=== PATIENT | female | born 1975 | race African-American/Black ===

== ENCOUNTER 2016-12-12 14:41 | Emergency (ER) | payer OTHER, SELFPAY ==
[2016-12-12 15:23] LABS: BASO % 0.5 % (0.0-1.0); EOS # 0.2 K/mm3 (0.0-0.50); EOS % 1.8 % (0.0-3.0); LARGE UNSTAINED CELL # 0.2 K/mm3 (0.0-0.4); LARGE UNSTAINED CELL % 2.2 % (0.0-4.0); LYMPH # 2.6 K/mm3 (1.5-4.5); LYMPH % 27.9 % (24.0-44.0); MEAN CORPUSCULAR HEMOGLOBIN 27.4 pg (27.0-33.0); MEAN CORPUSCULAR HGB CONC 33.4 g/dl (32.0-36.5); MEAN CORPUSCULAR VOLUME 81.9 fl (80.0-96.0); MONO # 0.4 K/mm3 (0.0-0.8); MONO % 4.1 % (0.0-5.0); NEUTROPHILS # 5.8 K/mm3 (1.8-7.7); NEUTROPHILS % 63.6 % (36.0-66.0); PLATELET COUNT, AUTOMATED 321 k/mm3 (150-450); RED CELL DISTRIBUTION WIDTH 13.4 % (11.5-14.5); WHITE BLOOD COUNT 9.2 K/mm3 (4.0-10.0)
[2016-12-12 16:01] LABS: ANION GAP 6 MEQ/L (8-16); BLOOD UREA NITROGEN 11 MG/DL (7-18); CALCIUM LEVEL 9.4 MG/DL (8.5-10.1); CARBON DIOXIDE LEVEL 27 MEQ/L (21-32); CHLORIDE LEVEL 105 MEQ/L (98-107); CREATININE FOR GFR 0.95 MG/DL (0.55-1.02); GLOMERULAR FILTRATION RATE > 60.0 (>58); GLUCOSE, FASTING 93 MG/DL (70-105); POTASSIUM SERUM 3.6 MEQ/L (3.5-5.1); SODIUM LEVEL 138 MEQ/L (136-145)
[2016-12-12 16:08] LABS: THYROXINE (T4) 9.5 UG/DL (4.5-12.0)
--- NOTE | 2016-12-12 16:14 | REP ---
Chest x-ray: Two views: History: Shortness of breath. Comparison study 10/25/2016. Findings: There is an S-shaped thoracolumbar rotoscoliotic curve again noted unchanged. Lungs well inflated and clear. Pleural angles are sharp. Heart is not enlarged. Pulmonary vasculature is not increased. Impression: No active disease. Thoracolumbar rotoscoliosis again noted. Signed by Madi Soto MD 12/12/2016 04:22 P
[2016-12-12] MEDS ORDERED: ISOVUE-370 76% 100ML VIAL (Q9967) As Ordered ONE (16:22)
--- NOTE | 2016-12-12 17:00 | REP ---
Chest CT pulmonary artery CT angiography: Comparison is 12/12/2011. There are no emboli in the pulmonary trunk or central pulmonary arteries. There are no emboli in the pulmonary artery lobe or segment branches. The lung buenrostro are unremarkable except for dependent atelectasis. There is no mediastinal adenopathy. There is no hilar adenopathy. No axillary adenopathy. The thoracic aorta is unremarkable. Cardiac size is upper normal. The visualized upper abdominal contents are unremarkable except for a hypodensity in the spleen, likely a cyst, unchanged. Impression: There is no evidence of pulmonary embolus. Otherwise, negative CT study of the chest. There is a hypodensity in the spleen, unchanged, likely a cyst. Signed by Jh Bowling MD 12/12/2016 04:52 P
--- NOTE | 2016-12-12 17:30 | ECHO ---
DATE OF PROCEDURE: 12/12/2016 REFERRING PHYSICIAN: KAYE Qureshi INDICATION: Dyspnea. HEIGHT: 157 cm WEIGHT: 64.9 kg MEASUREMENTS: Aortic root: 2.8 cm Left atrium: 3.3 cm Ventricular septum: 1.02 cm Posterior wall: 0.91 cm Left ventricle diastole: 4.0 cm LVOT: 2.1 cm Inferior vena cava: 1.4 cm DOPPLER MEASUREMENTS: Aortic valve velocity: 103 cm/s LVOT velocity: 75.9 cm/s LVOT VTI: 50.3 cm Very mild mitral regurgitation. Mitral E velocity: 75.5 cm/s Mitral A velocity: 60.7 cm/s Mitral deceleration time: 169 ms Very mild tricuspid regurgitation within normal limits. Pulmonary artery systolic pressure: 60 mmHg by pulmonary acceleration time. Estimated right ventricular systolic pressure: 23 mmHg assuming a right atrial pressure of 5 mmHg. MITRAL ANNULAR TISSUE DOPPLER: E prime lateral: 16.3 cm/s E prime septal: 9.3 cm/s DESCRIPTION: Rhythm was sinus. Image quality was good. No pericardial effusion. This is a 2D, M-mode, color flow Doppler, and pulse wave Doppler examination and included mitral annular tissue Doppler. CONCLUSIONS: 1. Normal echocardiogram Doppler. 2. Normal left ventricle (LV) internal dimension, wall thickness, wall motion, wall thickening, systolic and diastolic function. Left ventricular ejection fraction (LVEF) 60% by visual loss. 3. Normal estimated right ventricle systolic pressure and pulmonary artery systolic pressure.
--- NOTE | 2016-12-12 17:53 | EDDOCDS ---
Nurse's Notes [facility] Name: Keyana Gordon Age: 41 yrs Sex: Female : 1975 Arrival Date: 12/12/2016 Time: 14:41 Bed 7 Private MD: Khadra [facility] Diagnosis: Malaise and fatigue Presentation: 12/12 14:47 Presenting complaint: Patient states: has been having some shortness of breathe , worse mk4 on exertion since a cardiac ablation last wed ( 6 days ago) has called and they told wanted to see her in office but her car is broken down, denies any chest pain. Adult Sepsis Screening: The patient does not have new or worsening altered mentation. Patient's respiratory rate is less than 22. Systolic blood pressure is greater than 100. Patient has a qSOFA score of 0- Negative Sepsis Screen. Suicide/Homicide risk assessment- the patient denies having any suicidal and/or homicidal ideations and does not present with any other emotional, behavioral or mental health complaints. Transition of care: patient was not received from another setting of care. 14:47 Acuity: SVETLANA Level 3 mk4 14:47 Method Of Arrival: Walkin/Carried/Asstd mk4 17:52 Status: The patient is a dependent. f Triage Assessment: 14:51 General: Appears in no apparent distress. Pain: Denies pain. HIV screening NA for this mk4 visit Offered previously. Historical: - Allergies: Macrobid; - Home Meds: 1. multivitamin Oral cap daily - PMHx: Celiac disease; second degree av block; - PSHx: Cardiac Ablation; ; - Social history: Smoking status: Patient states was never smoker of tobacco. No barriers to communication noted, The patient speaks fluent Albanian. - Family history: Not pertinent. - : The pt / caregiver states he / she is not on anticoagulants. Home medication list is obtained from the patient. - Exposure Risk Screening:: None identified. Screenin:12 Screening information is obtained from the patient. Fall risk: No risks identified. ttb Assistance ADL's: requires no assistance with activities of daily living. Abuse/DV Screen: The patient / caregiver reports he/she is: not in a situation that causes fear, pain or injury. Nutritional screening: No deficits noted. Advance Directives: Currently, there is no health care proxy. There is no active DNR order. home support is adequate. Assessment: 15:00 Adult Sepsis Screening: The patient does not have new or worsening altered mentation. ttb Patient's respiratory rate is less than 22. Systolic blood pressure is greater than 100. Patient has a qSOFA score of 0- Negative Sepsis Screen. General: Appears in no apparent distress, well nourished, well groomed, Behavior is appropriate for age, cooperative, pleasant. 15:00 Pain: Denies pain. Neurological: Level of Consciousness is awake, alert, Facial ttb symmetry appears normal. Cardiovascular: Heart tones S1 S2 present Rhythm is sinus rhythm Chest pain is denied Reports chest tightness. Respiratory: Airway is patent Respiratory effort is even, unlabored, Respiratory pattern is regular, symmetrical, Breath sounds are clear bilaterally. Reports shortness of breath on exertion since ablation done this past sunday the patient has moderate shortness of breath Denies cough. GI: Denies nausea, vomiting, pain. Derm: Skin is normal. 16:00 Reassessment: Patient appears in no apparent distress at this time. pt getting ECHO. . ttb 16:00 Cardiovascular: Rhythm is sinus rhythm. ttb 16:43 Reassessment: Patient appears in no apparent distress at this time. pt visiting with ttb family at bedside. Taken to CT and returned to different room. Report given to NATY Garcia to continue care. Pt was nauseated in CT. Resolving. . 17:04 General: Appears in no apparent distress, Behavior is appropriate for age, cooperative. dsf Pain: Denies pain. Neurological: Level of Consciousness is awake, alert, Oriented to person, place, time. Cardiovascular: Capillary refill < 3 seconds Rhythm is sinus rhythm No ectopy. Respiratory: Airway is patent Respiratory effort is even, unlabored, Respiratory pattern is regular, symmetrical, Reports shortness of breath on exertion. GI: Abdomen is non- distended. Derm: Skin is dry, Skin is normal, Skin temperature is warm. 17:50 Adult Sepsis Screening: The patient does not have new or worsening altered mentation. dsf Patient's respiratory rate is less than 22. Systolic blood pressure is greater than 100. Patient has a qSOFA score of 0- Negative Sepsis Screen. General: Appears in no apparent distress, Behavior is appropriate for age, cooperative. Neurological: Level of Consciousness is awake, alert. Cardiovascular: Capillary refill < 3 seconds. Respiratory: Airway is patent Respiratory effort is even, unlabored, Respiratory pattern is regular, symmetrical. Derm: Skin is dry, Skin is normal, Skin temperature is warm. Vital Signs: 14:44 BP 143 / 89; Pulse 86; Resp 20; Temp 97.8(O); Pulse Ox 100% on R/A; Weight 65.77 kg elp (R); Height 5 ft. 0 in. (152.40 cm) (R); 14:59 BP 134 / 80 (auto/); ttb 15:00 Pulse 82 MON; Pulse Ox 100% ; ttb 15:12 BP 133 / 79 (auto/); ttb 15:12 Pulse 75 MON; Pulse Ox 99% on R/A; ttb 16:48 BP 124 / 67 (auto/); dsf 16:49 Pulse 74 MON; Pulse Ox 99% ; dsf 17:03 BP 132 / 68 Supine; Pulse 72; Resp 20; Pulse Ox 100% on R/A; dsf 17:03 BP 137 / 77 Sitting; Pulse 75; Pulse Ox 100% on R/A; dsf 17:03 BP 139 / 79 Standing; Pulse 86; Pulse Ox 100% on R/A; dsf 17:18 BP 128 / 70 (auto/); dsf 17:18 Pulse 74 MON; Pulse Ox 99% ; dsf 14:44 Body Mass Index 28.32 (65.77 kg, 152.40 cm) elp 17:03 pt denies dizziness dsf Vitals: 14:44 Log In Time: December 12, 2016 at 14:42. RN notified that patient meets Red Flag elp criteria. ED Course: 14:43 Patient visited by Melisa Best PCA. elp 14:43 Patient moved to Waiting elp 14:44 Khadra [facility] is Private Physician. elp 14:44 Patient moved to Pre RCE gr2 14:46 Patient visited by Melisa Best PCA. elp 14:46 Triage Initiated hs1 14:52 Patient moved to 2 mk4 14:54 [facility] le 15:00 Patient visited by Sylvia Pickering FNP. le 15:00 Patient visited by Sylvia Pickering FNP. le 15:12 The patient / caregiver is instructed regarding the plan of care and ED course. Patient ttb has correct armband on for positive identification. Placed in gown. Bed in low position. Side rails up X 1. clinical research monitor on. Pulse ox on. NIBP on. 15:12 Inserted peripheral IV: 20gauge IV in right antecubital area and blood collected. ttb Patient tolerated the procedure well. Labs drawn. Labs/Blood culture drawn. 15:14 clinical research monitor on. Pulse ox on. NIBP on. lr2 15:14 EKG done. (by ED staff). Reviewed by Sylvia RESTREPO. lr2 15:15 Patient visited by Nuvia Lawler. lr2 15:17 Thyroid Profile Sent. ttb 15:17 -Blood Culture Sent. ttb 15:17 Basic Metabolic Profile Sent. ttb 15:17 CBC with Diff Sent. ttb 15:17 Cardiac Injury Profile Sent. ttb 15:17 D-Dimer Quant Sent. ttb 15:17 Troponin Sent. ttb 15:21 Patient visited by Flori Stafford RN. ttb 16:20 Patient visited by Sylvia Pickering FNP. le 16:27 Chest, 2 View (pa\E\lat) Returned. EDMS 16:31 Patient moved to 7 kcs 16:44 Patient visited by Flori Stafford RN. ttb 17:05 Patient visited by Radha Chappell RN. dsf 17:20 CT Chest Angio R/O PE Returned. EDMS 17:36 Khadra [facility] is Referral Physician. le 17:52 No procedures done that require assistance. dsf 17:52 Discontinued lock intact, bleeding controlled, pressure dressing applied, No dsf redness/swelling at site. Order Results: Lab Order: Basic Metabolic Profile; SPEC'M 12/12/16 15:13 Test: GLUCOSE, FASTING; Value: 93; Range: 70-105; Units: MG/DL; Status: F Test: BLOOD UREA NITROGEN; Value: 11; Range: 7-18; Units: MG/DL; Status: F Test: CREATININE FOR GFR; Value: 0.95; Range: 0.55-1.02; Units: MG/DL; Status: F Test: GLOMERULAR FILTRATION RATE; Value: > 60.0; Range: >58; Status: F Test: SODIUM LEVEL; Value: 138; Range: 136-145; Units: MEQ/L; Status: F Test: POTASSIUM SERUM; Value: 3.6; Range: 3.5-5.1; Units: MEQ/L; Status: F Test: CHLORIDE LEVEL; Value: 105; Range: 98-107; Units: MEQ/L; Status: F Test: CARBON DIOXIDE LEVEL; Value: 27; Range: 21-32; Units: MEQ/L; Status: F Test: ANION GAP; Value: 6; Range: 8-16; Abnormal: Below low normal; Units: MEQ/L; Status: F Test: CALCIUM LEVEL; Value: 9.4; Range: 8.5-10.1; Units: MG/DL; Status: F Test Note: ; Units are mL/min/1.73 m2 Chronic Kidney Disease Staging per NKF: Stage I & II GFR >=60 Normal to Mildly Decreased Stage III GFR 30-59 Moderately Decreased Stage IV GFR 15-29 Severely Decreased Stage V GFR <15 Very Little GFR Left ESRD GFR <15 on VENEER JOINTER Lab Order: CBC with Diff; SPEC'M 12/12/16 15:13 Test: WHITE BLOOD COUNT; Value: 9.2; Range: 4.0-10.0; Units: K/mm3; Status: F Test: RED BLOOD COUNT; Value: 4.12; Range: 4.00-5.40; Units: M/mm3; Status: F Test: HEMOGLOBIN; Value: 11.3; Range: 12.0-16.0; Abnormal: Below low normal; Units: g/dl; Status: F Test: HEMATOCRIT; Value: 33.7; Range: 36.0-47.0; Abnormal: Below low normal; Units: %; Status: F Test: MEAN CORPUSCULAR VOLUME; Value: 81.9; Range: 80.0-96.0; Units: fl; Status: F Test: MEAN CORPUSCULAR HEMOGLOBIN; Value: 27.4; Range: 27.0-33.0; Units: pg; Status: F Test: MEAN CORPUSCULAR HGB CONC; Value: 33.4; Range: 32.0-36.5; Units: g/dl; Status: F Test: RED CELL DISTRIBUTION WIDTH; Value: 13.4; Range: 11.5-14.5; Units: %; Status: F Test: PLATELET COUNT, AUTOMATED; Value: 321; Range: 150-450; Units: k/mm3; Status: F Test: NEUTROPHILS %; Value: 63.6; Range: 36.0-66.0; Units: %; Status: F Test: LYMPH %; Value: 27.9; Range: 24.0-44.0; Units: %; Status: F Test: MONO %; Value: 4.1; Range: 0.0-5.0; Units: %; Status: F Test: EOS %; Value: 1.8; Range: 0.0-3.0; Units: %; Status: F Test: BASO %; Value: 0.5; Range: 0.0-1.0; Units: %; Status: F Test: LARGE UNSTAINED CELL %; Value: 2.2; Range: 0.0-4.0; Units: %; Status: F Test: NEUTROPHILS #; Value: 5.8; Range: 1.8-7.7; Units: K/mm3; Status: F Test: LYMPH #; Value: 2.6; Range: 1.5-4.5; Units: K/mm3; Status: F Test: MONO #; Value: 0.4; Range: 0.0-0.8; Units: K/mm3; Status: F Test: EOS #; Value: 0.2; Range: 0.0-0.50; Units: K/mm3; Status: F Test: BASO #; Value: 0.0; Range: 0.0-0.2; Units: K/mm3; Status: F Test: LARGE UNSTAINED CELL #; Value: 0.2; Range: 0.0-0.4; Units: K/mm3; Status: F Lab Order: Cardiac Injury Profile; SPEC'M 12/12/16 15:13 Test: CPK CREATINE PHOSPHOKINASE; Value: 83; Range: 26-192; Units: U/L; Status: F Test: CK-MB VALUE MASS; Value: 1.0; Range: 0.0-3.6; Units: NG/ML; Status: F Test: MB/CK RELATIVE INDEX; Value: 1.20; Range: < OR =4; Status: F Test Note: ; DIAGNOSIS CRITERIA MMB ng/ml Relative Index (RI) NON-AMI < or = 5 N/A BUSCH ZONE > 5 < or = 4 AMI > 5 > 4 Lab Order: D-Dimer Quant; [facility] 12/12/16 15:13 Test: D-DIMER QUANT; Value: 902.0; Range: <500; Abnormal: Above high normal; Units: ng/ml; Status: F Lab Order: Troponin; [facility]12/[facility]16 15:13 Test: TROPONIN I; Value: < 0.02; Range: < 0.10; Units: NG/ML; Status: F Test Note: ; Troponin I Reference Interval for Siemens Holidu LOCI: 99th Percentile= 0.00-0.045 ng/ml Risk Stratification: <= 0.10 ng/ml Decreased Risk for Adverse Clinical Events. 0.10-1.50 ng/ml Increased Risk for Adverse Clinical Events. Evaluation of additional criterion and/or repeat testing in 2-6 hours is suggested to rule out myocardial damage. >= 1.50 ng/ml Indicative of Myocardial Injury. Lab Order: Thyroid Profile; SPEC12/12/16 15:13 Test: T UPTAKE; Value: 34; Range: 30-39; Units: %; Status: F Test: THYROXINE (T4); Value: 9.5; Range: 4.5-12.0; Units: UG/DL; Status: F Test: FREE THYROXINE INDEX; Value: 3.2; Range: 1.3-4.8; Units: %; Status: F Test: THYROID STIMULATING HORMONE; Value: 0.822; Range: 0.358-3.740; Units: uIU/ML; Status: F Radiology Order: Chest, 2 View (pa\E\lat) Test: Chest, 2 View (pa\E\lat) REASON FOR EXAMINATION: Shortness of Breath; Chest x-ray: Two views:; ; History: Shortness of breath.; ; Comparison study 10/25/2016.; ; Findings: There is an S-shaped thoracolumbar rotoscoliotic curve again noted; unchanged. Lungs well inflated and clear. Pleural angles are sharp. Heart is; not enlarged. Pulmonary vasculature is not increased.; ; Impression:; ; No active disease. Thoracolumbar rotoscoliosis again noted.; ; ; Signed by; Madi Soto MD 12/12/2016 04:22 P; Radiology Order: CT Chest Angio R/O PE Test: CT Chest Angio R/O PE REASON FOR EXAMINATION: Shortness of Breath; Chest CT pulmonary artery CT angiography:; ; Comparison is 12/12/2011.; ; There are no emboli in the pulmonary trunk or central pulmonary arteries. There; are no emboli in the pulmonary artery lobe or segment branches.; ; The lung buenrostro are unremarkable except for dependent atelectasis. There is no; mediastinal adenopathy. There is no hilar adenopathy. No axillary adenopathy.; ; The thoracic aorta is unremarkable. Cardiac size is upper normal. The; visualized upper abdominal contents are unremarkable except for a hypodensity in; the spleen, likely a cyst, unchanged.; ; Impression:; ; There is no evidence of pulmonary embolus. Otherwise, negative CT study of the; chest. There is a hypodensity in the spleen, unchanged, likely a cyst.; ; ; Signed by; Jh Bowling MD 12/12/2016 04:52 P; Outcome: 17:37 Discharge ordered by Provider. le 17:52 Discharge Assessment: Patient awake, alert and oriented x 3. No cognitive and/or dsf functional deficits noted. Patient verbalized understanding of disposition instructions. patient administered narcotics - no. The following High Risk Discharge criteria are identified: None. Discharged to home ambulatory. Condition: stable. Discharge instructions given to patient, Instructed on discharge instructions, follow up and referral plans. Demonstrated understanding of instructions, Pt was receptive of discharge instructions/ teaching. CT Study completed. Property sent home with patient. 17:52 Patient left the ED. dsf Signatures: Dispatcher [employer] EDMS Ines Ponce RN RN Sylvia Houser, SVP PROGRAMMATIC TV SVP PROGRAMMATIC TV Mirna Quinteros RN RN hs1 Radha Chappell RN RN dsf Flori Stafford RN RN ttb Rich Solis gr2 Melisa Best, ELEMENTARY VOCAL MUSIC TEACHER ELEMENTARY VOCAL MUSIC TEACHER elLeda Vitale RN RN lisa4 Nuvia Lawler lr2 Corrections: (The following items were deleted from the chart) 14:47 14:44 Presenting complaint: Patient states: while lifting her rucksack her arm gave out hs1 and she felt a pop. hs1 14:47 14:44 Adult Sepsis Screening: The patient does not have new or worsening altered hs1 mentation. Patient's respiratory rate is less than 22. Systolic blood pressure is greater than 100. Patient has a qSOFA score of 0- Negative Sepsis Screen. 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 [place] [id number] : 14:44 Transition of care: patient was not received from another setting of care. [place] [id number] 14:44 Acuity: SVETLANA Level 4 [place] [id number] 14:44 Method Of Arrival: Walkin/Carried/Asstd [place] [id number] 14:52 14:47 Presenting complaint: Patient states: has been having some shortness of breathe mk4 since a cardiac ablation last wed ( 6 days ago) has called and they told wanted to see her in office but her car is broken down, denies any chest pain mk4 17:05 17:04 Derm: Skin is pink, warm & dry. dsf dsf MTDD
--- NOTE | 2016-12-12 17:53 | EDDOCDS ---
Physician Documentation [facility] Name: Keyana Gordon Age: 41 yrs Sex: Female : 1975 Arrival Date: 12/12/2016 Time: 14:41 Bed 7 Private MD: GILBERTO Gaviria Disposition: 12/12/16 17:37 Discharged to Home/Self Care. Impression: Malaise and fatigue. - Condition is Stable. - Discharge Instructions: Fatigue. - Medication Reconciliation, Local Pharmacy Hours, Work Release Form - 3 day, [place]/ form. - Follow up: GILBERTO Gaviria; When: Call to arrange an appointment; Reason: Recheck today's complaints, Continuance of care. Follow up: Private Physician; When: Keep your scheduled appointment on 12/19; Reason: Recheck today's complaints, Continuance of care. - Problem is an ongoing problem. - Symptoms are unchanged. - Notes: Keep hydrated Return to the ED for any further concerns Historical: - Allergies: Macrobid; - Home Meds: 1. multivitamin Oral cap daily - PMHx: Celiac disease; second degree av block; - PSHx: Cardiac Ablation; ; - Social history: Smoking status: Patient states was never smoker of tobacco. No barriers to communication noted, The patient speaks fluent Lithuanian. - Family history: Not pertinent. - : The pt / caregiver states he / she is not on anticoagulants. Home medication list is obtained from the patient. - Exposure Risk Screening:: None identified. Vital Signs: 12/12 14:44 BP 143 / 89; Pulse 86; Resp 20; Temp 97.8(O); Pulse Ox 100% on R/A; Weight 65.77 kg / elp 145 lbs (R); Height 5 ft. 0 in. (152.40 cm) (R); 14:59 BP 134 / 80 (auto/); ttb 15:00 Pulse 82 MON; Pulse Ox 100% ; ttb 15:12 BP 133 / 79 (auto/); ttb 15:12 Pulse 75 MON; Pulse Ox 99% on R/A; ttb 16:48 BP 124 / 67 (auto/); dsf 16:49 Pulse 74 MON; Pulse Ox 99% ; dsf 17:03 BP 132 / 68 Supine; Pulse 72; Resp 20; Pulse Ox 100% on R/A; dsf 17:03 BP 137 / 77 Sitting; Pulse 75; Pulse Ox 100% on R/A; dsf 17:03 BP 139 / 79 Standing; Pulse 86; Pulse Ox 100% on R/A; dsf 17:18 BP 128 / 70 (auto/); dsf 17:18 Pulse 74 MON; Pulse Ox 99% ; dsf 14:44 Body Mass Index 28.32 (65.77 kg, 152.40 cm) elp 17:03 pt denies dizziness dsf MDM: 14:56 -Blood Culture (Adults Only), peripheral from different site, or from device/port/PICC le etc. if present ordered. 14:56 Oss Architect/Pulse Ox/q 15 min VS ordered. le 14:56 IV Saline Lock ordered. le 14:56 Oxygen at 4L/Min NC or Home dosage ordered. le 14:56 Rhythm Strip to chart ordered. le 14:58 Basic Metabolic Profile Ordered. EDMS 14:58 CBC with Diff Ordered. EDMS 14:58 Cardiac Injury Profile Ordered. EDMS 14:58 D-Dimer Quant Ordered. EDMS 14:58 Troponin Ordered. EDMS 14:58 -Blood Culture Ordered. EDMS 14:58 Chest, 2 View (pa\E\lat) Ordered. EDMS 14:59 ECG WITH READING ER PHYS+CARDIAG ordered. EDMS 15:05 -Blood Culture (Adults Only), peripheral from different site, or from device/port/PICC lbd etc. if present complete. 15:07 BLOOD CULTURES Ordered. EDMS 15:12 ECHOCARDIOGRAM,DOPPLER/COLOR FLOW+CARDIAG ordered. EDMS 15:14 Thyroid Profile Ordered. EDMS 15:14 Orthostatic VS ordered. le 16:17 Basic Metabolic Profile Reviewed. le 16:17 CBC with Diff Reviewed. le 16:17 D-Dimer Quant Reviewed. le 16:17 Cardiac Injury Profile Reviewed. le 16:17 Troponin Reviewed. le 16:17 Thyroid Profile Reviewed. le 16:19 CT Chest Angio R/O PE Ordered. EDMS 16:31 Financial registration complete. ks16 16:48 Misc. Nursing Order ordered. le 16:49 REGULAR+DIET ordered. EDMS Signatures: Dispatcher [employer] EDMS Valentina Richardson, Cad Engineer Unit lbd Sylvia Pickering, FURNACE CHECKER FURNACE CHECKER Radha Sheriff,RN RN dsf Flori Stafford, RN RN zhoub Leda Scott, RN RN lisa4 Kimberlyn Hutchins, Reg Reg [email or web address] MTDD
--- NOTE | 2016-12-13 21:45 | ECGEPIP ---
Stationary ECG Study [facility] - ED Test Date: 2016-12-12 Pat Name: MILY CORRIGAN Department: Room: - Gender: F Optometric Tech: yissel : 1975 Requested By: CARMELITA RESTREPO Order Number: [id number] Reading MD: Shavon Stone Measurements Intervals [place] Rate: 72 P: 41 DC: 158 QRS: 23 QRSD: 86 T: 39 QT: 343 QTc: 376 Interpretive Statements SINUS RHYTHM SIMILAR 04/07/12 Electronically Signed On 12-13-2016 21:45:13 EST by Shavon Stone
--- NOTE | 2016-12-14 18:54 | EDDOCDS ---
Physician Documentation [facility] Name: Keyana Gordon Age: 41 yrs Sex: Female : 1975 Arrival Date: 12/12/2016 Time: 14:41 Bed 7 Private MD: GILBERTO Gaviria Disposition: 12/12/16 17:37 Discharged to Home/Self Care. Impression: Malaise and fatigue. - Condition is Stable. - Discharge Instructions: Fatigue. - Medication Reconciliation, Local Pharmacy Hours, Work Release Form - 3 day, [place]/ form. - Follow up: GILBERTO Gaviria; When: Call to arrange an appointment; Reason: Recheck today's complaints, Continuance of care. Follow up: Private Physician; When: Keep your scheduled appointment on 12/19; Reason: Recheck today's complaints, Continuance of care. - Problem is an ongoing problem. - Symptoms are unchanged. - Notes: Keep hydrated Return to the ED for any further concerns Historical: - Allergies: Macrobid; - Home Meds: 1. multivitamin Oral cap daily - PMHx: Celiac disease; second degree av block; - PSHx: Cardiac Ablation; ; - Social history: Smoking status: Patient states was never smoker of tobacco. No barriers to communication noted, The patient speaks fluent Finnish. - Family history: Not pertinent. - : The pt / caregiver states he / she is not on anticoagulants. Home medication list is obtained from the patient. - Exposure Risk Screening:: None identified. Vital Signs: 12/12 14:44 BP 143 / 89; Pulse 86; Resp 20; Temp 97.8(O); Pulse Ox 100% on R/A; Weight 65.77 kg / elp 145 lbs (R); Height 5 ft. 0 in. (152.40 cm) (R); 14:59 BP 134 / 80 (auto/); ttb 15:00 Pulse 82 MON; Pulse Ox 100% ; ttb 15:12 BP 133 / 79 (auto/); ttb 15:12 Pulse 75 MON; Pulse Ox 99% on R/A; ttb 16:48 BP 124 / 67 (auto/); dsf 16:49 Pulse 74 MON; Pulse Ox 99% ; dsf 17:03 BP 132 / 68 Supine; Pulse 72; Resp 20; Pulse Ox 100% on R/A; dsf 17:03 BP 137 / 77 Sitting; Pulse 75; Pulse Ox 100% on R/A; dsf 17:03 BP 139 / 79 Standing; Pulse 86; Pulse Ox 100% on R/A; dsf 17:18 BP 128 / 70 (auto/); dsf 17:18 Pulse 74 MON; Pulse Ox 99% ; dsf 17:45 BP 121 / 68 (auto/); dsf 17:45 Pulse 76 MON; Resp 16; Temp 99.8(T); Pulse Ox 99% on R/A; Pain 0/10; dsf 14:44 Body Mass Index 28.32 (65.77 kg, 152.40 cm) elp 17:03 pt denies dizziness dsf MDM: 14:56 -Blood Culture (Adults Only), peripheral from different site, or from device/port/PICC le etc. if present ordered. 14:56 Metalworker/Pulse Ox/q 15 min VS ordered. le 14:56 IV Saline Lock ordered. le 14:56 Oxygen at 4L/Min NC or Home dosage ordered. le 14:56 Rhythm Strip to chart ordered. le 14:58 Basic Metabolic Profile Ordered. EDMS 14:58 CBC with Diff Ordered. EDMS 14:58 Cardiac Injury Profile Ordered. EDMS 14:58 D-Dimer Quant Ordered. EDMS 14:58 Troponin Ordered. EDMS 14:58 -Blood Culture Ordered. EDMS 14:58 Chest, 2 View (pa\E\lat) Ordered. EDMS 14:59 ECG WITH READING ER PHYS+CARDIAG ordered. EDMS 15:05 -Blood Culture (Adults Only), peripheral from different site, or from device/port/PICC lbd etc. if present complete. 15:07 BLOOD CULTURES Ordered. EDMS 15:12 ECHOCARDIOGRAM,DOPPLER/COLOR FLOW+CARDIAG ordered. EDMS 15:14 Thyroid Profile Ordered. EDMS 15:14 Orthostatic VS ordered. le 16:17 Basic Metabolic Profile Reviewed. le 16:17 CBC with Diff Reviewed. le 16:17 D-Dimer Quant Reviewed. le 16:17 Cardiac Injury Profile Reviewed. le 16:17 Troponin Reviewed. le 16:17 Thyroid Profile Reviewed. le 16:19 CT Chest Angio R/O PE Ordered. EDMS 16:31 Financial registration complete. [email or web address] 16:48 Misc. Nursing Order ordered. le 16:49 REGULAR+DIET ordered. EDMS 18:05 [place] [place] was [place] into [employer] and attached to record. [email or web address] 12/13 09:39 T-Sheet-- Draft Copy was scanned into [employer] and attached to record. gb 09:39 ECG/EKG was scanned into [employer] and attached to record. gb Signatures: Dispatcher [employer] EDMS Valentina Richardson, Linen Room Worker Unit lbd Anum Soni, Reg Reg gb Sylvia Pickering, OFFICE CLERK OFFICE CLERK Radha Sheriff,RN RN Flori Helm RN RN ttLeda Sanchez RN RN mkKimberlyn Pena, Reg Reg [email or web address] The chart was reviewed and I authenticate all verbal orders and agree with the evaluation and treatment provided.Attachments: 12/12 18:05 [facility] Payment Agreement [email or web address] 12/13 09:39 T-Sheet-- Draft Copy gb 09:39 ECG/EKG gb Chart Complete MTDD
--- NOTE | 2016-12-14 18:54 | EDDOCDS ---
Physician Documentation [facility] Name: Keyana Gordon Age: 41 yrs Sex: Female : 1975 Arrival Date: 12/12/2016 Time: 14:41 Bed 7 Private MD: GILBERTO Gaviria Disposition: 12/12/16 17:37 Discharged to Home/Self Care. Impression: Malaise and fatigue. - Condition is Stable. - Discharge Instructions: Fatigue. - Medication Reconciliation, Local Pharmacy Hours, Work Release Form - 3 day, [place]/ form. - Follow up: GILBERTO Gaviria; When: Call to arrange an appointment; Reason: Recheck today's complaints, Continuance of care. Follow up: Private Physician; When: Keep your scheduled appointment on 12/19; Reason: Recheck today's complaints, Continuance of care. - Problem is an ongoing problem. - Symptoms are unchanged. - Notes: Keep hydrated Return to the ED for any further concerns Historical: - Allergies: Macrobid; - Home Meds: 1. multivitamin Oral cap daily - PMHx: Celiac disease; second degree av block; - PSHx: Cardiac Ablation; ; - Social history: Smoking status: Patient states was never smoker of tobacco. No barriers to communication noted, The patient speaks fluent [place]. - Family history: Not pertinent. - : The pt / caregiver states he / she is not on anticoagulants. Home medication list is obtained from the patient. - Exposure Risk Screening:: None identified. Vital Signs: 12/12 14:44 BP 143 / 89; Pulse 86; Resp 20; Temp 97.8(O); Pulse Ox 100% on R/A; Weight 65.77 kg / elp 145 lbs (R); Height 5 ft. 0 in. (152.40 cm) (R); 14:59 BP 134 / 80 (auto/); ttb 15:00 Pulse 82 MON; Pulse Ox 100% ; ttb 15:12 BP 133 / 79 (auto/); ttb 15:12 Pulse 75 MON; Pulse Ox 99% on R/A; ttb 16:48 BP 124 / 67 (auto/); dsf 16:49 Pulse 74 MON; Pulse Ox 99% ; dsf 17:03 BP 132 / 68 Supine; Pulse 72; Resp 20; Pulse Ox 100% on R/A; dsf 17:03 BP 137 / 77 Sitting; Pulse 75; Pulse Ox 100% on R/A; dsf 17:03 BP 139 / 79 Standing; Pulse 86; Pulse Ox 100% on R/A; dsf 17:18 BP 128 / 70 (auto/); dsf 17:18 Pulse 74 MON; Pulse Ox 99% ; dsf 17:45 BP 121 / 68 (auto/); dsf 17:45 Pulse 76 MON; Resp 16; Temp 99.8(T); Pulse Ox 99% on R/A; Pain 0/10; dsf 14:44 Body Mass Index 28.32 (65.77 kg, 152.40 cm) elp 17:03 pt denies dizziness dsf MDM: 14:56 -Blood Culture (Adults Only), peripheral from different site, or from device/port/PICC le etc. if present ordered. 14:56 Manufacturing Laborer/Pulse Ox/q 15 min VS ordered. le 14:56 IV Saline Lock ordered. le 14:56 Oxygen at 4L/Min NC or Home dosage ordered. le 14:56 Rhythm Strip to chart ordered. le 14:58 Basic Metabolic Profile Ordered. EDMS 14:58 CBC with Diff Ordered. EDMS 14:58 Cardiac Injury Profile Ordered. EDMS 14:58 D-Dimer Quant Ordered. EDMS 14:58 Troponin Ordered. EDMS 14:58 -Blood Culture Ordered. EDMS 14:58 Chest, 2 View (pa\E\lat) Ordered. EDMS 14:59 ECG WITH READING ER PHYS+CARDIAG ordered. EDMS 15:05 -Blood Culture (Adults Only), peripheral from different site, or from device/port/PICC lbd etc. if present complete. 15:07 BLOOD CULTURES Ordered. EDMS 15:12 ECHOCARDIOGRAM,DOPPLER/COLOR FLOW+CARDIAG ordered. EDMS 15:14 Thyroid Profile Ordered. EDMS 15:14 Orthostatic VS ordered. le 16:17 Basic Metabolic Profile Reviewed. le 16:17 CBC with Diff Reviewed. le 16:17 D-Dimer Quant Reviewed. le 16:17 Cardiac Injury Profile Reviewed. le 16:17 Troponin Reviewed. le 16:17 Thyroid Profile Reviewed. le 16:19 CT Chest Angio R/O PE Ordered. EDMS 16:31 Financial registration complete. [email or web address] 16:48 Misc. Nursing Order ordered. le 16:49 REGULAR+DIET ordered. EDMS 18:05 [place] [place] was scanned into [employer] and attached to record. [email or web address] 12/13 09:39 T-Sheet-- Draft Copy was scanned into [employer] and attached to record. gb 09:39 ECG/EKG was scanned into [employer] and attached to record. gb Signatures: Dispatcher [employer] EDMS Valentina Richardson, [place] Technician Unit lbd Anum Soni, Reg Reg gb Sylvia Pickering, WRECKING MECHANIC WRECKING MECHANIC Radha Sheriff,RN RN Flori Helm RN RN ttLeda Sanchez RN RN mkKimberlyn Pena, Reg Reg [email or web address] The chart was reviewed and I authenticate all verbal orders and agree with the evaluation and treatment provided.Attachments: 12/12 18:05 [facility] Payment Agreement [email or web address] 12/13 09:39 T-Sheet-- Draft Copy gb 09:39 ECG/EKG gb Chart Complete MTDD
--- NOTE | 2016-12-14 18:54 | EDDOCDS ---
Nurse's Notes [facility] Name: Keyana Gordon Age: 41 yrs Sex: Female : 1975 Arrival Date: 12/12/2016 Time: 14:41 Bed 7 Private MD: Khadra [facility] [place] Diagnosis: Malaise and fatigue Presentation: 12/12 14:47 Presenting complaint: Patient states: has been having some shortness of breathe , worse mk4 on exertion since a cardiac ablation last wed ( 6 days ago) has called and they told wanted to see her in office but her car is broken down, denies any chest pain. Adult Sepsis Screening: The patient does not have new or worsening altered mentation. Patient's respiratory rate is less than 22. Systolic blood pressure is greater than 100. Patient has a qSOFA score of 0- Negative Sepsis Screen. Suicide/Homicide risk assessment- the patient denies having any suicidal and/or homicidal ideations and does not present with any other emotional, behavioral or mental health complaints. Transition of care: patient was not received from another setting of care. 14:47 Acuity: SVETLANA Level 3 mk4 14:47 Method Of Arrival: Walkin/Carried/Asstd mk4 14:47 Red Flag criteria, patient assessed and taken directly to a bed. mk4 17:52 Status: The patient is a dependent. rust Triage Assessment: 14:51 General: Appears in no apparent distress. Pain: Denies pain. HIV screening NA for this mk4 visit Offered previously. Historical: - Allergies: Macrobid; - Home Meds: 1. multivitamin Oral cap daily - PMHx: Celiac disease; second degree av block; - PSHx: Cardiac Ablation; ; - Social history: Smoking status: Patient states was never smoker of tobacco. No barriers to communication noted, The patient speaks fluent Croatian. - Family history: Not pertinent. - : The pt / caregiver states he / she is not on anticoagulants. Home medication list is obtained from the patient. - Exposure Risk Screening:: None identified. Screenin:12 Screening information is obtained from the patient. Fall risk: No risks identified. ttb Assistance ADL's: requires no assistance with activities of daily living. Abuse/DV Screen: The patient / caregiver reports he/she is: not in a situation that causes fear, pain or injury. Nutritional screening: No deficits noted. Advance Directives: Currently, there is no health care proxy. There is no active DNR order. home support is adequate. Assessment: 15:00 Adult Sepsis Screening: The patient does not have new or worsening altered mentation. ttb Patient's respiratory rate is less than 22. Systolic blood pressure is greater than 100. Patient has a qSOFA score of 0- Negative Sepsis Screen. General: Appears in no apparent distress, well nourished, well groomed, Behavior is appropriate for age, cooperative, pleasant. 15:00 Pain: Denies pain. Neurological: Level of Consciousness is awake, alert, Facial ttb symmetry appears normal. Cardiovascular: Heart tones S1 S2 present Rhythm is sinus rhythm Chest pain is denied Reports chest tightness. Respiratory: Airway is patent Respiratory effort is even, unlabored, Respiratory pattern is regular, symmetrical, Breath sounds are clear bilaterally. Reports shortness of breath on exertion since ablation done this past sunday the patient has moderate shortness of breath Denies cough. GI: Denies nausea, vomiting, pain. Derm: Skin is normal. 16:00 Reassessment: Patient appears in no apparent distress at this time. pt getting ECHO. . ttb 16:00 Cardiovascular: Rhythm is sinus rhythm. ttb 16:43 Reassessment: Patient appears in no apparent distress at this time. pt visiting with ttb family at bedside. Taken to CT and returned to different room. Report given to NATY Garcia to continue care. Pt was nauseated in CT. Resolving. . 17:04 General: Appears in no apparent distress, Behavior is appropriate for age, cooperative. dsf Pain: Denies pain. Neurological: Level of Consciousness is awake, alert, Oriented to person, place, time. Cardiovascular: Capillary refill < 3 seconds Rhythm is sinus rhythm No ectopy. Respiratory: Airway is patent Respiratory effort is even, unlabored, Respiratory pattern is regular, symmetrical, Reports shortness of breath on exertion. GI: Abdomen is non- distended. Derm: Skin is dry, Skin is normal, Skin temperature is warm. 17:50 Adult Sepsis Screening: The patient does not have new or worsening altered mentation. dsf Patient's respiratory rate is less than 22. Systolic blood pressure is greater than 100. Patient has a qSOFA score of 0- Negative Sepsis Screen. General: Appears in no apparent distress, Behavior is appropriate for age, cooperative. Neurological: Level of Consciousness is awake, alert. Cardiovascular: Capillary refill < 3 seconds. Respiratory: Airway is patent Respiratory effort is even, unlabored, Respiratory pattern is regular, symmetrical. Derm: Skin is dry, Skin is normal, Skin temperature is warm. Vital Signs: 14:44 BP 143 / 89; Pulse 86; Resp 20; Temp 97.8(O); Pulse Ox 100% on R/A; Weight 65.77 kg elp (R); Height 5 ft. 0 in. (152.40 cm) (R); 14:59 BP 134 / 80 (auto/); ttb 15:00 Pulse 82 MON; Pulse Ox 100% ; ttb 15:12 BP 133 / 79 (auto/); ttb 15:12 Pulse 75 MON; Pulse Ox 99% on R/A; ttb 16:48 BP 124 / 67 (auto/); dsf 16:49 Pulse 74 MON; Pulse Ox 99% ; dsf 17:03 BP 132 / 68 Supine; Pulse 72; Resp 20; Pulse Ox 100% on R/A; dsf 17:03 BP 137 / 77 Sitting; Pulse 75; Pulse Ox 100% on R/A; dsf 17:03 BP 139 / 79 Standing; Pulse 86; Pulse Ox 100% on R/A; dsf 17:18 BP 128 / 70 (auto/); dsf 17:18 Pulse 74 MON; Pulse Ox 99% ; dsf 17:45 BP 121 / 68 (auto/); dsf 17:45 Pulse 76 MON; Resp 16; Temp 99.8(T); Pulse Ox 99% on R/A; Pain 0/10; dsf 14:44 Body Mass Index 28.32 (65.77 kg, 152.40 cm) elp 17:03 pt denies dizziness dsf Vitals: 14:44 Log In Time: December 12, 2016 at 14:42. RN notified that patient meets Red Flag elp criteria. ED Course: 14:43 Patient visited by Melisa Best PCA. elp 14:43 Patient moved to Waiting elp 14:44 Khadra [facility] [place] is Private Physician. elp 14:44 Patient moved to Pre RCE gr2 14:46 Patient visited by Melisa Best PCA. elp 14:46 Triage Initiated hs1 14:52 Patient moved to 2 4 14:54 [facility] le 15:00 Patient visited by Sylvia Pickering FNP. le 15:00 Patient visited by Sylvia Pickering FNP. le 15:12 The patient / caregiver is instructed regarding the plan of care and ED course. Patient ttb has correct armband on for positive identification. Placed in gown. Bed in low position. Side rails up X 1. monitor car operator on. Pulse ox on. NIBP on. 15:12 Inserted peripheral IV: 20gauge IV in right antecubital area and blood collected. ttb Patient tolerated the procedure well. Labs drawn. Labs/Blood culture drawn. 15:14 monitor car operator on. Pulse ox on. NIBP on. lr2 15:14 EKG done. (by ED staff). Reviewed by Sylvia RESTREPO. lr2 15:15 Patient visited by Nuvia Lawler. lr2 15:17 Thyroid Profile Sent. ttb 15:17 -Blood Culture Sent. ttb 15:17 Basic Metabolic Profile Sent. ttb 15:17 CBC with Diff Sent. ttb 15:17 Cardiac Injury Profile Sent. ttb 15:17 D-Dimer Quant Sent. ttb 15:17 Troponin Sent. ttb 15:21 Patient visited by Flori Stafford RN. ttb 16:20 Patient visited by Sylvia Pickering FNP. le 16:27 Chest, 2 View (pa\E\lat) Returned. EDMS 16:31 Patient moved to 7 kcs 16:44 Patient visited by Flori Stafford RN. ttb 17:05 Patient visited by Radha Chappell RN. dsf 17:20 CT Chest Angio R/O PE Returned. EDMS 17:36 Khadra [facility] [place] is Referral Physician. le 17:52 No procedures done that require assistance. dsf 17:52 Discontinued lock intact, bleeding controlled, pressure dressing applied, No dsf redness/swelling at site. 18:03 Patient name changed from Keyana\S\\S\Evan\S\ to Keyana\S\ \S\Evan. EDMS 18:05 [facility] Payment Agreement was scanned into [employer] and attached to record. ks16 18:09 ECHOCARDIOGRAM,DOPPLER/COLOR FLOW Returned. EDNJ 12/13 09:39 T-Sheet-- Draft Copy was scanned into [employer] and attached to record. gb 09:39 ECG/EKG was scanned into [employer] and attached to record. gb 22:11 EKG-ADULT Returned. EDMS Order Results: Lab Order: -Blood Culture; SPEC'M 12/12/16 15:13 Test: BLOOD CULTURE; Value: No growth after 24 hours . All specimens observed; Status: F Test: BLOOD CULTURE; Value: for 5 days. Results final at that time.; Status: F Test: BLOOD CULTURE; Value: No Growth after 48 hours. All Specimens observed; Status: F Test: BLOOD CULTURE; Value: for 7 days. Results final at that time.; Status: F Lab Order: Basic Metabolic Profile; SPEC'M 12/12/16 15:13 Test: GLUCOSE, FASTING; Value: 93; Range: 70-105; Units: MG/DL; Status: F Test: BLOOD UREA NITROGEN; Value: 11; Range: 7-18; Units: MG/DL; Status: F Test: CREATININE FOR GFR; Value: 0.95; Range: 0.55-1.02; Units: MG/DL; Status: F Test: GLOMERULAR FILTRATION RATE; Value: > 60.0; Range: >58; Status: F Test: SODIUM LEVEL; Value: 138; Range: 136-145; Units: MEQ/L; Status: F Test: POTASSIUM SERUM; Value: 3.6; Range: 3.5-5.1; Units: MEQ/L; Status: F Test: CHLORIDE LEVEL; Value: 105; Range: 98-107; Units: MEQ/L; Status: F Test: CARBON DIOXIDE LEVEL; Value: 27; Range: 21-32; Units: MEQ/L; Status: F Test: ANION GAP; Value: 6; Range: 8-16; Abnormal: Below low normal; Units: MEQ/L; Status: F Test: CALCIUM LEVEL; Value: 9.4; Range: 8.5-10.1; Units: MG/DL; Status: F Test Note: ; Units are mL/min/1.73 m2 Chronic Kidney Disease Staging per NKF: Stage I & II GFR >=60 Normal to Mildly Decreased Stage III GFR 30-59 Moderately Decreased Stage IV GFR 15-29 Severely Decreased Stage V GFR <15 Very Little GFR Left ESRD GFR <15 on OFFICE SERVICES SPECIALIST Lab Order: CBC with Diff; LORE 12/12/16 15:13 Test: WHITE BLOOD COUNT; Value: 9.2; Range: 4.0-10.0; Units: K/mm3; Status: F Test: RED BLOOD COUNT; Value: 4.12; Range: 4.00-5.40; Units: M/mm3; Status: F Test: HEMOGLOBIN; Value: 11.3; Range: 12.0-16.0; Abnormal: Below low normal; Units: g/dl; Status: F Test: HEMATOCRIT; Value: 33.7; Range: 36.0-47.0; Abnormal: Below low normal; Units: %; Status: F Test: MEAN CORPUSCULAR VOLUME; Value: 81.9; Range: 80.0-96.0; Units: fl; Status: F Test: MEAN CORPUSCULAR HEMOGLOBIN; Value: 27.4; Range: 27.0-33.0; Units: pg; Status: F Test: MEAN CORPUSCULAR HGB CONC; Value: 33.4; Range: 32.0-36.5; Units: g/dl; Status: F Test: RED CELL DISTRIBUTION WIDTH; Value: 13.4; Range: 11.5-14.5; Units: %; Status: F Test: PLATELET COUNT, AUTOMATED; Value: 321; Range: 150-450; Units: k/mm3; Status: F Test: NEUTROPHILS %; Value: 63.6; Range: 36.0-66.0; Units: %; Status: F Test: LYMPH %; Value: 27.9; Range: 24.0-44.0; Units: %; Status: F Test: MONO %; Value: 4.1; Range: 0.0-5.0; Units: %; Status: F Test: EOS %; Value: 1.8; Range: 0.0-3.0; Units: %; Status: F Test: BASO %; Value: 0.5; Range: 0.0-1.0; Units: %; Status: F Test: LARGE UNSTAINED CELL %; Value: 2.2; Range: 0.0-4.0; Units: %; Status: F Test: NEUTROPHILS #; Value: 5.8; Range: 1.8-7.7; Units: K/mm3; Status: F Test: LYMPH #; Value: 2.6; Range: 1.5-4.5; Units: K/mm3; Status: F Test: MONO #; Value: 0.4; Range: 0.0-0.8; Units: K/mm3; Status: F Test: EOS #; Value: 0.2; Range: 0.0-0.50; Units: K/mm3; Status: F Test: BASO #; Value: 0.0; Range: 0.0-0.2; Units: K/mm3; Status: F Test: LARGE UNSTAINED CELL #; Value: 0.2; Range: 0.0-0.4; Units: K/mm3; Status: F Lab Order: Cardiac Injury Profile; [facility] 12/12/16 15:13 Test: CPK CREATINE PHOSPHOKINASE; Value: 83; Range: 26-192; Units: U/L; Status: F Test: CK-MB VALUE MASS; Value: 1.0; Range: 0.0-3.6; Units: NG/ML; Status: F Test: MB/CK RELATIVE INDEX; Value: 1.20; Range: < OR =4; Status: F Test Note: ; DIAGNOSIS CRITERIA MMB ng/ml Relative Index (RI) NON-AMI < or = 5 N/A BUSCH ZONE > 5 < or = 4 AMI > 5 > 4 Lab Order: D-Dimer Quant; [facility] 12/12/16 15:13 Test: D-DIMER QUANT; Value: 902.0; Range: <500; Abnormal: Above high normal; Units: ng/ml; Status: F Lab Order: Troponin; [facility] 12/12/16 15:13 Test: TROPONIN I; Value: < 0.02; Range: < 0.10; Units: NG/ML; Status: F Test Note: ; Troponin I Reference Interval for [employer] LOCI: 99th Percentile= 0.00-0.045 ng/ml Risk Stratification: <= 0.10 ng/ml Decreased Risk for Adverse Clinical Events. 0.10-1.50 ng/ml Increased Risk for Adverse Clinical Events. Evaluation of additional criterion and/or repeat testing in 2-6 hours is suggested to rule out myocardial damage. >= 1.50 ng/ml Indicative of Myocardial Injury. Lab Order: Thyroid Profile; SPEC'M 12/12/16 15:13 Test: T UPTAKE; Value: 34; Range: 30-39; Units: %; Status: F Test: THYROXINE (T4); Value: 9.5; Range: 4.5-12.0; Units: UG/DL; Status: F Test: FREE THYROXINE INDEX; Value: 3.2; Range: 1.3-4.8; Units: %; Status: F Test: THYROID STIMULATING HORMONE; Value: 0.822; Range: 0.358-3.740; Units: uIU/ML; Status: F Radiology Order: Chest, 2 View (pa\E\lat) Test: Chest, 2 View (pa\E\lat) REASON FOR EXAMINATION: Shortness of Breath; Chest x-ray: Two views:; ; History: Shortness of breath.; ; Comparison study 10/25/2016.; ; Findings: There is an S-shaped thoracolumbar rotoscoliotic curve again noted; unchanged. Lungs well inflated and clear. Pleural angles are sharp. Heart is; not enlarged. Pulmonary vasculature is not increased.; ; Impression:; ; No active disease. 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: yissel; : 1975 Requested By: SYLVIA RESTREPO; Order Number: [id number] Reading MD: Shavon Stone; Measurements; Intervals [place]; Rate: 72 P: 41; AK: 158 QRS: 23; QRSD: 86 T: 39; QT: 343; QTc: 376; Interpretive Statements; SINUS RHYTHM; SIMILAR 04/07/12; Electronically Signed On 12-13-2016 21:45:13 EST by Shavon Stone; Radiology Order: ECHOCARDIOGRAM,DOPPLER/COLOR FLOW Test: ECHOCARDIOGRAM,DOPPLER/COLOR FLOW DATE OF PROCEDURE: 12/12/2016; ; REFERRING PHYSICIAN: KAYE Qureshi; ; INDICATION: Dyspnea.; ; HEIGHT: 157 cm; WEIGHT: 64.9 kg; ; MEASUREMENTS:; Aortic root: 2.8 cm; Left atrium: 3.3 cm; Ventricular septum: 1.02 cm; Posterior wall: 0.91 cm; Left ventricle diastole: 4.0 cm; LVOT: 2.1 cm; Inferior vena cava: 1.4 cm; ; DOPPLER MEASUREMENTS:; Aortic valve velocity: 103 cm/s; LVOT velocity: 75.9 cm/s; LVOT VTI: 50.3 cm; Very mild mitral regurgitation.; Mitral E velocity: 75.5 cm/s; Mitral A velocity: 60.7 cm/s; Mitral deceleration time: 169 ms; Very mild tricuspid regurgitation within normal limits.; Pulmonary artery systolic pressure: 60 mmHg by pulmonary acceleration time.; Estimated right ventricular systolic pressure: 23 mmHg assuming a right atrial; pressure of 5 mmHg.; ; MITRAL ANNULAR TISSUE DOPPLER:; E prime lateral: 16.3 cm/s; E prime septal: 9.3 cm/s; ; DESCRIPTION: Rhythm was sinus. Image quality was good. No pericardial effusion.; This is a 2D, M-mode, color flow Doppler, and pulse wave Doppler examination and; included mitral annular tissue Doppler.; ; CONCLUSIONS:; 1. Normal echocardiogram Doppler.; 2. Normal left ventricle (LV) internal dimension, wall thickness, wall motion,; wall thickening, systolic and diastolic function. Left ventricular ejection; fraction (LVEF) 60% by visual loss.; 3. Normal estimated right ventricle systolic pressure and pulmonary artery; systolic pressure.; Radiology Order: CT Chest Angio R/O PE Test: CT Chest Angio R/O PE REASON FOR EXAMINATION: Shortness of Breath; Chest CT pulmonary artery CT angiography:; ; Comparison is 12/12/2011.; ; There are no emboli in the pulmonary trunk or central pulmonary arteries. There; are no emboli in the pulmonary artery lobe or segment branches.; ; The lung buenrostro are unremarkable except for dependent atelectasis. There is no; mediastinal adenopathy. There is no hilar adenopathy. No axillary adenopathy.; ; The thoracic aorta is unremarkable. Cardiac size is upper normal. The; visualized upper abdominal contents are unremarkable except for a hypodensity in; the spleen, likely a cyst, unchanged.; ; Impression:; ; There is no evidence of pulmonary embolus. Otherwise, negative CT study of the; chest. There is a hypodensity in the spleen, unchanged, likely a cyst.; ; ; Signed by; Jh Bolwing MD 12/12/2016 04:52 P; Outcome: 12/12 17:37 Discharge ordered by Provider. le 17:52 Discharge Assessment: Patient awake, alert and oriented x 3. No cognitive and/or dsf functional deficits noted. Patient verbalized understanding of disposition instructions. patient administered narcotics - no. The following High Risk Discharge criteria are identified: None. Discharged to home ambulatory. Condition: stable. Discharge instructions given to patient, Instructed on discharge instructions, follow up and referral plans. Demonstrated understanding of instructions, Pt was receptive of discharge instructions/ teaching. CT Study completed. Property sent home with patient. 17:52 Patient left the ED. dsf Signatures: Dispatcher [employer] EDMS Ines Ponce RN RN kcs Barnhardt, Gloria, Reg Reg gb Sylvia Pickering, EVENT STAFF MEMBER EVENT STAFF MEMBER Mirna Quinteros RN RN hs1 Radha Chappell RN RN dsf Flori Stafford RN NATY ttb Rich Solis gr2 Melisa Best, HISTORY CARD CLERK HISTORY CARD CLERK elp Leda Scott RN RN mk4 Kimberlyn Hutchins, Reg Reg ks16 Nuvia Lawler lr2 Corrections: (The following items were deleted from the chart) 14:47 14:44 Presenting complaint: Patient states: while lifting her rucksack her arm gave out hs1 and she felt a pop. hs1 14:47 14:44 Adult Sepsis Screening: The patient does not have new or worsening altered hs1 mentation. Patient's respiratory rate is less than 22. Systolic blood pressure is greater than 100. Patient has a qSOFA score of 0- Negative Sepsis Screen. 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 hs1 hs1 : 14:44 Transition of care: patient was not received from another setting of care. hs1 [facility] 14: 14:44 Acuity: SVETLANA Level 4 1 [facility] : 14:44 Method Of Arrival: Walkin/Carried/Asstd hs1 hs1 14:52 14:47 Presenting complaint: Patient states: has been having some shortness of breathe mk4 since a cardiac ablation last wed ( 6 days ago) has called and they told wanted to see her in office but her car is broken down, denies any chest pain mk4 17:05 17:04 Derm: Skin is pink, warm & dry. dsf dsf Chart Complete MTDD
== END 2016-12-12 17:52 | disposition home or self-care (01) ==
LOC: M ED 14:41
DX: R06.02 Shortness of breath (principal); R53.83 Other fatigue; K90.0 Celiac disease; I44.1 Atrioventricular block, second degree
CPT/HCPCS: 36415; 71020; 71275; 80048; 82550; 82553; 84436; 84443; 84479; 85025; 85379; 87040; 93005; 93041; 99285; Q9967

== ENCOUNTER 2018-08-10 08:59 | Emergency (ER) | payer OTHER ==
[2018-08-10] MEDS: ASPIRIN 81 MG CHEW TABLET PO (09:34)
[2018-08-10 09:38] LABS: BASO # 0.1 10^3/uL (0.0-0.2); BASO % 1.3 % (0.0-1.0); EOS # 0.1 10^3/uL (0.0-0.50); EOS % 1.1 % (0.0-3.0); HEMATOCRIT 37.3 % (36.0-47.0); HEMOGLOBIN 12.2 g/dl (12.0-15.5); IMMATURE GRANULOCYTE % 0.3 % (0-3.0); LYMPH # 2.7 10^3/uL (1.5-4.5); LYMPH % 26.3 % (24.0-44.0); MEAN CORPUSCULAR HEMOGLOBIN 27.4 pg (27.0-33.0); MEAN CORPUSCULAR HGB CONC 32.7 g/dl (32.0-36.5); MEAN CORPUSCULAR VOLUME 83.6 fl (80.0-96.0); MONO # 0.7 10^3/uL (0.0-0.8); MONO % 6.8 % (0.0-5.0); NEUTROPHILS # 6.5 10^3/uL (1.8-7.7); NEUTROPHILS % 64.2 % (36.0-66.0); PLATELET COUNT, AUTOMATED 436 10^3/uL (150-450); RED BLOOD COUNT 4.46 10^6/uL (4.00-5.40); RED CELL DISTRIBUTION WIDTH 14.4 % (11.5-14.5); WHITE BLOOD COUNT 10.1 10^3/uL (4.0-10.0)
[2018-08-10 10:16] LABS: ANION GAP 8 MEQ/L (8-16); BLOOD UREA NITROGEN 8 MG/DL (7-18); CALCIUM LEVEL 9.5 MG/DL (8.5-10.1); CARBON DIOXIDE LEVEL 27 MEQ/L (21-32); CHLORIDE LEVEL 108 MEQ/L (98-107); CK-MB VALUE MASS < 1.0 NG/ML (<3.6); CPK CREATINE PHOSPHOKINASE 94 U/L (26-192); CREATININE FOR GFR 0.95 MG/DL (0.55-1.30); GLOMERULAR FILTRATION RATE > 60.0 (>58); GLUCOSE, FASTING 69 MG/DL (70-100); MB/CK RELATIVE INDEX 1.06 (< OR =4); POTASSIUM SERUM 3.7 MEQ/L (3.5-5.1); SODIUM LEVEL 143 MEQ/L (136-145); TROPONIN I < 0.02 NG/ML (< 0.10)
== END 2018-08-10 10:36 | disposition home or self-care (01) ==
LOC: M ED 08:59
DX: R07.9 Chest pain, unspecified (principal); F43.0 Acute stress reaction; Z88.8 Allergy status to other drugs, medicaments and biological substances; K90.41 Non-celiac gluten sensitivity; Z79.899 Other long term (current) drug therapy; Z79.82 Long term (current) use of aspirin
CPT/HCPCS: 71045

== ENCOUNTER 2018-11-13 17:42 | Emergency (ER) | payer OTHER, SELFPAY ==
[~2018-11-13] VITALS: Ht 152.4 cm; Wt 56.8 kg
[~2018-11-13 17:42] MED LIST: CLAR10CA3 PO; FLON1SPR NARES; PATA0.2S OP
[2018-11-13 18:15] LABS: BASO # 0.1 10^3/uL (0.0-0.2); EOS # 0.1 10^3/uL (0.0-0.50); EOS % 1.4 % (0.0-3.0); HEMATOCRIT 33.1 % (36.0-47.0); HEMOGLOBIN 10.9 g/dl (12.0-15.5); LYMPH # 3.4 10^3/uL (1.5-4.5); MEAN CORPUSCULAR HEMOGLOBIN 27.3 pg (27.0-33.0); MEAN CORPUSCULAR HGB CONC 32.9 g/dl (32.0-36.5); MEAN CORPUSCULAR VOLUME 82.8 fl (80.0-96.0); MONO # 0.7 10^3/uL (0.0-0.8); MONO % 7.5 % (0.0-5.0); NEUTROPHILS # 5.1 10^3/uL (1.8-7.7); NEUTROPHILS % 53.8 % (36.0-66.0); PLATELET COUNT, AUTOMATED 405 10^3/uL (150-450); WHITE BLOOD COUNT 9.5 10^3/uL (4.0-10.0)
[2018-11-13 18:25] LABS: INR 1.11; PROTHROMBIN TIME 14.4 SECONDS (12.1-14.4)
[2018-11-13 18:40] LABS: D-DIMER QUANT 802.64 ng/ml (<500)
[2018-11-13 18:45] LABS: ALT/SGPT 19 U/L (12-78); BILIRUBIN,DIRECT < 0.1 MG/DL (0.0-0.2); BILIRUBIN,TOTAL 0.2 MG/DL (0.2-1.0); BLOOD UREA NITROGEN 12 MG/DL (7-18); CALCIUM LEVEL 9.1 MG/DL (8.5-10.1); CARBON DIOXIDE LEVEL 26 MEQ/L (21-32); CHLORIDE LEVEL 105 MEQ/L (98-107); CK-MB VALUE MASS < 1.0 NG/ML (<3.6); CPK CREATINE PHOSPHOKINASE 95 U/L (26-192); CREATININE FOR GFR 0.84 MG/DL (0.55-1.30); GLOMERULAR FILTRATION RATE > 60.0 (>58); GLUCOSE, FASTING 84 MG/DL (70-100); LIPASE 212 U/L (73-393); MB/CK RELATIVE INDEX 1.05 (< OR =4); NT-PRO BNP 17 PG/ML (<125); POTASSIUM SERUM 3.9 MEQ/L (3.5-5.1); SODIUM LEVEL 137 MEQ/L (136-145); TOTAL PROTEIN 7.2 GM/DL (6.4-8.2); TROPONIN I < 0.02 NG/ML (< 0.10)
[2018-11-13] MEDS ORDERED: ISOVUE-370 76% 100ML VIAL (Q9967) As Ordered ONE (19:16)
--- NOTE | 2018-11-13 19:26 | REP ---
PORTABLE CHEST: AP portable view of the chest is performed. There is no acute infiltrate or pulmonary edema. The heart is not significantly enlarged. Mediastinal silhouette is unchanged. There is curvature of the thoracic spine convex to the right. IMPRESSION: No acute pulmonary disease. Electronically Signed by Jh Moya MD 11/13/2018 08:00 P
--- NOTE | 2018-11-13 19:48 | REPVR ---
EXAM: CT Angiography Chest With Contrast EXAM DATE/TIME: 11/13/2018 7:18 PM CLINICAL HISTORY: 43 years old, female; Pain; Chest pain TECHNIQUE: Axial computed tomographic angiography images of the chest with intravenous contrast using CT angiography protocol. All CT scans at this facility use at least one of these dose optimization techniques: automated exposure control; mA and/or kV adjustment per patient size (includes targeted exams where dose is matched to clinical indication); or iterative reconstruction. Coronal and sagittal reformatted images were created and reviewed. MIP reconstructed images were created and reviewed. CONTRAST: 75 ml of ISOVUE 370 administered intravenously. COMPARISON: CT ANGIO CHEST 12/12/2016 4:30 PM FINDINGS: Pulmonary arteries: Normal. No pulmonary emboli. Aorta: Normal. No aortic aneurysm. No aortic dissection. Lungs: Normal. No consolidation. No masses. Pleural space: Normal. No pneumothorax. No pleural effusion. Heart: Normal. No cardiomegaly. No pericardial effusion. Lymph nodes: Unremarkable. No enlarged lymph nodes. Bones/joints: Unremarkable. No acute fracture. Soft tissues: Unremarkable. IMPRESSION: No acute findings. Electronically signed by: Bobo Crystal On 11/13/2018 19:48:14 PM
[2018-11-13 21:31] VITALS: BP 116/66
--- NOTE | 2018-11-14 02:58 | ECGEPIP ---
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
--- NOTE | 2018-11-14 03:02 | ECGEPIP ---
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
== END 2018-11-13 21:45 | disposition short-term general hospital (02) ==
LOC: M ED 17:42
DX: I45.9 Conduction disorder, unspecified (principal); K90.0 Celiac disease; I44.1 Atrioventricular block, second degree; Z91.018 Allergy to other foods; Z88.8 Allergy status to other drugs, medicaments and biological substances
CPT/HCPCS: 36415; 71045; 71275; 80048; 80076; 82550; 82553; 83690; 83880; 84443; 84484; 85025; 85379; 85610; 93005; 93041; 94760; 99285; Q9967

== ENCOUNTER → 2022-03-15 | Outpatient (CLI) | payer OTHER ==
[~2022-03-15] MED LIST changes: +OLOP2.5D3 OP; -PATA0.2S OP
== END ==
LOC: M RAD 07:00
PROVIDERS: ATTEND Physician Assistant
DX: H54.7 Unspecified visual loss (principal); R51.9 Headache, unspecified